=== PATIENT | male | born 1960 | race African-American/Black ===

== ENCOUNTER → 2016-09-27 | Day surgery (SDC) | payer OTHER ==
[~2016-09-27] MED LIST: ALEVE220 M1 PO; AMLODIPINE BESY10 MG PO; CARVEDILOL12.5 MG PO; HCTZ PO
--- NOTE | ~2016-09-27 | OR ---
Unit #: [id number] #: [id number] Patient: TYLER MARTINES [id number] [address] [place], [place] [address] [id number] MR#: [id number] NAME: TYLER MARTINES ROOM: Date of Procedure: 09/27/2016 Admission Date: 09/27/2016 Surgeon: Rj Ordaz M.D. : 1960 Attending Physician: Rj Ordaz M.D. Primary Care Physician: Lio Noriega M.D. PROCEDURE OPERATIVE NOTE PREOPERATIVE DIAGNOSIS Lumbar disc herniation, spondylolisthesis, radiculopathy. POSTOPERATIVE DIAGNOSIS Lumbar disc herniation, spondylolisthesis, radiculopathy. PROCEDURE PERFORMED Lumbar epidural steroid injection with fluoroscopic guidance and needle localization. HISTORY The patient is a 55-year-old male with left lower extremity greater than back pain, due to the previously mentioned diagnosis. He has failed conservative treatment. In the past a single epidural steroid injection had given him six months of very good improvement. He currently has pain which will not settle. We will repeat injection based on his history, pathology, symptomatology and response to treatment. The patient wants to avoid surgery. PROCEDURE The patient was placed in the seated position. Standard monitors were applied. Sterile prep and drape of the lumbar area was performed. Skin at the L4 level was localized with 1% lidocaine. An 18-gauge [employer] needle was advanced via the [id number] technique under fluoroscopic guidance in toward the epidural space. The patient did not complain of pain or paresthesias during needle advancement. After confirming proper positioning with fluoroscopy and radiographic contrast, a dose of 80 mg of Depo-Medrol and 4 mL of 0.125% bupivacaine was deposited. The patient tolerated the procedure otherwise well and was discharged to the recovery room in stable condition. Dictated by... Jorge Holland/sergio TD: 09/27/2016 10:56 JOB #: [id number] CC: Rj Ordaz M.D. Unit #: [id number] #: [id number] Patient: TYLER MARTINES PROCEDURE OPERATIVE NOTE Page 1 of 1 X Rj Ordaz MD X PROCEDURE OPERATIVE NOTE
== END | disposition home or self-care (01) ==
LOC: CCSC 09:13
DX: M51.16 Intervertebral disc disorders with radiculopathy, lumbar region (principal); M43.16 Spondylolisthesis, lumbar region
CPT/HCPCS: J1040; J2250